=== PATIENT | male | born 1965 | race Two or more races ===

== ENCOUNTER 2024-12-26 17:57 | Emergency (ER) | payer MEDICAID, SELFPAY ==
[2024-12-26 17:58] VITALS: BMI 27.4
--- NOTE | 2024-12-26 18:08 | PC.NURSE ---
PATIENT PROVIDED WITH COMMUNITY RESOURCE LIST DUE TO STATING HE DOES NOT FEEL SAFE AT HOME DUE TO LACK OF HEAT. REFINISH TECHNICIAN AND LOBSTERMAN NOTIFIED. PROVIDED WITH RESOURCES
[2024-12-26 18:27] VITALS: BP 121/80; PULSE 129; RESP 20; TEMP 38.8; O2SAT 98
--- NOTE | 2024-12-26 18:41 | XR_ITS ---
Examination: PA lateral chest 2 views Technique: Upright PA lateral chest 2 views Exam date and time: December 26, 2024 1709 hrs. Indications: Coughing several months with chest pain Findings: Normal heart size Mild accentuation of bronchovascular markings. No lobar pneumonia The osseous structures are intact Impression: Bronchitis pattern
--- NOTE | 2024-12-26 18:41 | EKG_ITS ---
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
--- NOTE | 2024-12-26 18:42 | PD.EDRME ---
Rapid Medical Screening Exam [facility] Arrival date/time: 12/26/24 17:57 59M with history of HTN, Valley Fever (2009), DM, and homelessness presents to ED with 2 months of cough and SOB that got worse several days ago. Chief Complaint: Flu Like Symptoms Vital signs: Vital Signs Temperature 101.9 F H 12/26/24 18:27 Pulse Rate 129 H 12/26/24 18:27 Respiratory Rate 20 12/26/24 18:27 Blood Pressure 121/80 12/26/24 18:27 Pulse Oximetry (%) 98 12/26/24 18:27 Oxygen Delivery Method Room Air 12/26/24 18:27
[2024-12-26 19:11] LABS: Lactate (Lactic Acid) 1.5 mMol/L (0.4-2.0)
[2024-12-26 19:16] LABS: Basophils # (Auto) 0.1 Thou/mm3 (0.0-0.2); Basophils % (Auto) 1 % (0-2.5); Eosinophils # (Auto) 0.1 Thou/mm3 (0.0-0.5); Eosinophils % (Auto) 1 % (0-10); Hematocrit 44.6 % (41.0-53.0); Hemoglobin 14.9 g/dL (13.5-16.0); Immature Granulocytes % (Auto) 0 % (0-0); Immature Granulocytes Auto 0.02 Thou/mm3 (0.00-0.00); Lymphocytes # (Auto) 1.4 Thou/mm3 (1.0-4.8); Lymphocytes % (Auto) 16 % (10-50); Mean Corpuscular HGB Conc 33.4 g/dl (31.0-37.0); Mean Corpuscular Volume 81 fL (80-100); Monocytes # (Auto) 0.8 Thou/mm3 (0.0-0.8); Monocytes % (Auto) 9 % (0-12); Neutrophils # (Auto) 6.1 Thou/mm3 (1.8-7.7); Neutrophils % (Auto) 73 % (37-80); Nucleated Red Blood Cell % 0 /100 WBC (0); Platelet Count 247 Thou/mm3 (140-440); Red Blood Count 5.52 Miln/mm3 (4.50-5.90); White Blood Count 8.3 Thou/mm3 (3.8-10.6)
[2024-12-26 19:29] LABS: B-Type Natriuretic Peptide 175 pg/mL (0-100)
[2024-12-26 19:33] LABS: Alanine Aminotransferase 17 U/L (10-49); Albumin, Serum 4.3 gm/dL (3.4-4.8); Albumin/Globulin Ratio 1.1 (1.2-2.2); Alkaline Phosphatase 110 U/L (46-116); Anion Gap 8 (7-16); Aspartate Amino Transferase 28 U/L (0-34); BUN/Creatinine Ratio 10 Ratio (12-20); Bilirubin,Total 0.5 mg/dL (0.3-1.2); Blood Urea Nitrogen 12 mg/dL (9-23); Calcium 9.6 mg/dL (8.3-10.6); Calcium (Corrected) 9.6 mg/dL (8.5-10.1); Carbon Dioxide 27.3 mMol/L (20.0-31.0); Chloride 94 mMol/L (98-107); Creatinine (Component) 1.2 mg/dL (0.6-1.3); Globulin 3.9 gm/dL (2.3-3.5); Glucose 220 mg/dL (74-106); Osmolality,Calculated 265 (275-295); Potassium 3.9 mMol/L (3.4-5.1); Sodium 129 mMol/L (136-145); Total Protein 8.2 gm/dL (5.7-8.2); Troponin I < 0.020 ng/mL (0.0-0.045); eGFR > 60 See Note
[2024-12-26 19:35] VITALS: TEMP 38.8
[2024-12-26] MEDS: IBUPROFEN TAB 600 MG TABLET PO (19:35)
[2024-12-26] MEDS: ACETAMINOPHEN 500 MG TABLET 1000 MG PO (19:35)
[2024-12-26 19:39] LABS: Procalcitonin 0.19 ng/ml (0.0-0.49)
[2024-12-26 21:48] VITALS: BP 92/69; PULSE 104; RESP 18; TEMP 36.7; O2SAT 96
--- NOTE | 2024-12-26 21:56 | EDNOTE_ITS ---
Upper Respiratory Inf. RME/HPI General Chief Complaint: Flu Like Symptoms Stated Complaint: COUGH Source: patient Arrival date/time: 12/26/24 17:57 Mode of arrival: ambulatory Limitations: no limitations RME / HPI RME / HPI Narrative: 12/26/24 17:57 DR GEORGES MAIN ED EVALUATION: 59-year-old male with a history of hypertension, diabetes mellitus, Valley Fever (2008), and homelessness, presenting with two months of persistent cough and shortness of breath, which have worsened over the past several days. He was previously treated for bronchitis two months ago and has been taking [id number]-[id number] cough medication prior to arrival. The patient also reports subjective fever over the last 48 hours, along with chills, myalgias, headache, and sore throat. He describes his throat pain as sharp, rated 8/10, and persistent for two months. He denies recent influenza vaccination and has no history of tobacco, alcohol, or substance use. Related Data Previous Rx's ?Medication ?Instructions ?Recorded oseltamivir 75 mg capsule (Tamiflu) 75 mg PO BID 5 day s #10 caps 12/26/24 Allergies Allergy/AdvReac Type Severity Reaction Status Date / Time No Known Allergies Allergy Verified 12/26/24 18:01 Review of Systems Review of Systems Systems Reviewed: All systems reviewed, normal except as documented ED Exam Narrative Physical exam: GENERAL APPEARANCE: alert and oriented x 4, well-developed, well-nourished, no acute distress VITALS: All vitals were reviewed and the pulse ox is 96% on room air, which is normal according to my interpretation. HEENT: Normocephalic, atraumatic; pupils equal, round, reactive to light; EOMI; mucous membranes pink, moist; oropharynx clear NECK: Supple LUNGS: CTABL; no wheezes, no rales, no rhonchi HEART: Regular rate, regular rhythm; normal S1, S2; no murmurs ABDOMEN: non distended; normal BS; soft, no tenderness, no guarding, no rebound; no masses, no organomegaly, no hernia BACK: no CVA tenderness EXTREMITIES: atraumatic; no edema NEUROLOGIC: awake; alert and oriented x4; cranial nerves II-XII grossly intact; no focal sensory or motor deficits PSYCHIATRIC: appropriate mood and affect SKIN: warm, dry, normal color; no rashes General Limitations: Present no limitations Course Course Course Narrative: CXR is ordered for determining etiology of coughing. Quality Measures none Orders Category Date Time Status Bedside COVID-19 Antigen Test NOW Care 12/26/24 18:29 Completed Bedside Influenza A&B Antigen Test NOW Care 12/26/24 18:29 Completed EKG (ED ONLY) *Do not use* NOW Care 12/26/24 18:41 Completed EKG (ED Only) Stat Exams 12/26/24 18:41 Draft XR chest 2V Stat Exams 12/26/24 18:41 Completed B-Type Natriuretic Peptide Stat Lab 12/26/24 18:53 Completed CBC Stat Lab 12/26/24 18:53 Completed Comprehensive Metabolic Panel Stat Lab 12/26/24 18:53 Completed Lactate (Lactic Acid) Stat Lab 12/26/24 18:53 Completed Magnesium Stat Lab 12/26/24 18:53 Completed Procalcitonin Stat Lab 12/26/24 18:53 Completed Troponin I Stat Lab 12/26/24 18:53 Completed Acetaminophen Tab [Tylenol ES Tab] Med 12/26/24 18:43 Discontinued 1,000 mg PO X1 ONE HYDROcodone*/APAP 5/325 [[place] 5/325] Med 12/26/24 22:02 Discontinued 1 tab PO X1 ONE Ibuprofen Tab [Motrin Tab] Med 12/26/24 18:43 Discontinued 600 mg PO X1 ONE Oseltamivir [Tamiflu] Med 12/26/24 22:02 Discontinued 75 mg PO X1 ONE Sodium Chloride 0.9% 1000 ml [Ns] 1,000 ml Med 12/26/24 22:07 Discontinued IV 999 mls/hr Vital Signs Vital signs: Vital Signs Temperature 101.9 F H 12/26/24 18:27 Pulse Rate 129 H 12/26/24 18:27 Respiratory Rate 20 12/26/24 18:27 Blood Pressure 121/80 12/26/24 18:27 Pulse Oximetry (%) 98 12/26/24 18:27 Oxygen Delivery Method Room Air 12/26/24 18:27 Upper Respiratory Infection MDM Narrative MDM Narrative:: Diagnostic findings: * Influenza A: Positive * Influenza B: Negative * COVID-19: Negative * Chest X-ray: Normal heart size, mild accentuation of bronchovascular markings, no lobar pneumonia, and intact osseous structures?findings consistent with a bronchitis pattern. Interventions & Orders: * Laboratory workup: CBC, CMP, troponin, procalcitonin, magnesium, BNP, lactate * IV fluids for hydration * Medications: * Acetaminophen and ibuprofen for fever and pain control. * Hydrocodone for severe throat pain. * Tamiflu for antiviral treatment of influenza A. Scribe Attestation: I, Carine Phillips, am scribing for and in the presence of Dr. Georges. Provider Notation: Although this document has been carefully reviewed, there may still be some phonetic and other typographical errors. These errors are purely grammatical due to imperfections in the software program and should not be construed in any way to compromise the substance of the patient's medical care during this visit. Patient data External records reviewed:: [facility] previous records Clinical information provided by:: patient Social determinants that could affect healthcare access:: none Patient has the following chronic illnesses:: see PMH How is presenting disease/condition affected by chronic disease/condition?: uneffected by Evaluation data The following diagnostics were reviewed and interpreted by me:: lab results, radiology exam(s) and EKG tracing(s) Lab and/or radiology exams considered but not ordered:: n/a Interpretation Summary: see narrative Medications / Prescriptions Medications or Prescriptions considered but not ordered:: na Medication administrations:: Medication Administration History Discontinued Medications Acetaminophen (Acetaminophen 500 Mg Tablet) 1,000 mg PO X1 ONE Stop: 12/26/24 18:44 Last Admin: 12/26/24 19:35 Dose: 1,000 mg Documented By: JOVANY Hydrocodone Bitart/Acetaminophen (Hydrocodone/Apap 5/325 Tablet) 1 tab PO X1 ONE Stop: 12/26/24 22:03 Last Admin: 12/26/24 22:21 Dose: 1 tab Documented By: CONNIE Sodium Chloride (Ns) 1,000 mls @ 999 mls/hr IV .Q1H1M ONE Stop: 12/26/24 23:07 Last Infusion: 12/26/24 23:02 Dose: Infused Documented By: Admin: 12/26/24 22:21 Dose: 999 mls/hr Documented By: CONNIE Ibuprofen (Ibuprofen Tab 600 Mg Tablet) 600 mg PO X1 ONE Stop: 12/26/24 18:44 Last Admin: 12/26/24 19:35 Dose: 600 mg Documented By: JOVANY Oseltamivir Phosphate (Oseltamivir 75 Mg Capsule) 75 mg PO X1 ONE Stop: 12/26/24 22:03 Last Admin: 12/26/24 22:21 Dose: 75 mg Documented By: CONNIE as above Consultations Consultation(s) initiated? (list below): No Diagnosis Upper Respiratory Differential Diagnosis: upper respiratory infection, viral infection and bronchitis Most likely diagnosis given after review of the tests above:: Influenza A, Hyponatremia Admission Indicated Admission indicated?: not indicated Admission Request Was there a request for admission?: No Disposition Plan Disposition Plan: Discharge Discharge Attestation Discharge Attestation: The patient and all family members were given an opportunity to ask questions and understood the discharge instructions. Discharge instructions specifically effects, indications for sooner follow up or return to the emergency department, and the expected course of current diagnosis. Patient condition: Stable Discharge Plan Plan Patient Disposition: HOME (Self Care) Prescriptions/Referrals Prescriptions/Med Rec: New oseltamivir [Tamiflu] 75 mg capsule 75 mg PO BID 5 Days Qty: 10 0RF Referrals: No Primary/Family,Physician [Primary Care Provider] - In 1 week Problem List Clinical Impression: Influenza A, Hyponatremia Patient/Caregiver Discharge Instructions Education Materials: ED Influenza (Adult), ED Hyponatremia Print Language: Turkish Stand Alone Forms: [facility] Award Info., Patient Portal Info Letter
[2024-12-26] MEDS: HYDROcodone/APAP 5/325 TABLET 1 TAB PO (22:21)
[2024-12-26] MEDS: SODIUM CHLORIDE 0.9% 1000 ML 1,000 ML 999 ML IV (22:21)
[2024-12-26] MEDS: OSELTAMIVIR 75 MG CAPSULE PO (22:21)
[2024-12-26 22:34] LABS: Magnesium 1.6 mg/dL (1.6-2.6)
[2024-12-27 00:02] VITALS: BP 92/69; PULSE 77; RESP 18; O2SAT 97
[2024-12-27 00:04] VITALS: BP 101/65; PULSE 81; RESP 17; TEMP 37.1; O2SAT 96
== END 2024-12-27 00:17 | disposition home or self-care (01) ==
PROVIDERS: Physician Assistant; Emergency Provider Emergency Medicine
DX: J10.1 Influenza due to other identified influenza virus with other respiratory manifestations (principal); E87.1 Hypo-osmolality and hyponatremia; E11.9 Type 2 diabetes mellitus without complications; I10 Essential (primary) hypertension
CPT/HCPCS: 36415; 71046; 80053; 83605; 83735; 83880; 84145; 84484; 85025; 86635; 87400; 87811; 93005; 96360; 99284; J7030; A9270